=== PATIENT | female | born 1970 | race Caucasian/White ===

== ENCOUNTER → 2022-05-04 | Outpatient (CLI) | payer BC | LOC: M WHC 07:51 | PROVIDERS: ATTEND Internal Medicine | DX: Z12.31 Encounter for screening mammogram for malignant neoplasm of breast (principal) ==

== ENCOUNTER → 2022-09-02 | Outpatient (CLI) | payer BC, OTHER ==
[~2022-09-02] MED LIST: ALLE180T33 PO; AUGM875T28 PO; CETI10CH PO; DECA4TAB PO; ESCI5SOL3 PO; GABA-282 PO; MOBI4TAB PO; PANT40TA29 PO; PRIM50TA6 PO; PROHANCE 279.3MG/ML 15ML VIAL ONE
== END ==
LOC: M PLAIMG 09:11
PROVIDERS: ATTEND Psychiatry & Neurology Neurology
DX: E04.1 Nontoxic single thyroid nodule (principal)
CPT/HCPCS: 70543; A9576

== ENCOUNTER → 2022-10-13 | Outpatient (CLI) | payer OTHER ==
[~2022-10-13] MED LIST changes: -PROHANCE 279.3MG/ML 15ML VIAL ONE
[2022-10-13 13:09] LABS: ALBUMIN 4.3 G/DL (3.2-5.2); ALKALINE PHOSPHATASE 79 U/L (46-116); ALT/SGPT 25 U/L (7.0-40); AST/SGOT 28 U/L (<34); BILIRUBIN,TOTAL 0.3 MG/DL (0.3-1.2); BLOOD UREA NITROGEN 13 MG/DL (9-23); CALCIUM LEVEL 9.3 MG/DL (8.5-10.1); CARBON DIOXIDE LEVEL 27 MMOL/L (20-31); CHLORIDE LEVEL 101 MMOL/L (98-107); CREATININE FOR GFR 0.78 MG/DL (0.55-1.30); GLOMERULAR FILTRATION RATE > 60.0 (>51); GLUCOSE, FASTING 88 MG/DL (60-100); POTASSIUM SERUM 4.7 MMOL/L (3.5-5.1); SODIUM LEVEL 136 MMOL/L (136-145); TOTAL PROTEIN 6.8 G/DL (5.7-8.2)
[2022-10-13 13:58] LABS: HEMOGLOBIN A1c 5.9 % (4.0-6.0)
[2022-10-14 19:06] LABS: FREE KAPPA LIGHT CHAINS SERUM 19.9 mg/L (3.3-19.4); FREE LAMBDA LIGHT CHAINS SERUM 11.5 mg/L (5.7-26.3); KAPPA/LAMBDA RATIO SERUM 1.73 (0.26-1.65)
== END ==
LOC: M RAD 11:09
PROVIDERS: ATTEND Internal Medicine
DX: R73.01 Impaired fasting glucose (principal); D44.0 Neoplasm of uncertain behavior of thyroid gland

== ENCOUNTER → 2023-09-05 | Outpatient (CLI) | payer OTHER | LOC: M SOG 08:28 | PROVIDERS: ATTEND Physician Assistant | DX: M25.512 Pain in left shoulder (principal) ==

== ENCOUNTER → 2023-10-03 | Outpatient (CLI) | payer OTHER ==
[~2023-10-03] MED LIST changes: +ISOVUE-370 76% 100ML VIAL As Ordered ONE
== END ==
LOC: M RAD 17:53
PROVIDERS: ATTEND Internal Medicine
DX: M54.2 Cervicalgia (principal)

== ENCOUNTER → 2024-01-02 | Outpatient (CLI) | payer OTHER ==
[~2024-01-02] MED LIST changes: -ISOVUE-370 76% 100ML VIAL As Ordered ONE
== END ==
LOC: M SOG 07:55
PROVIDERS: ATTEND Physician Assistant
DX: M54.50 Low back pain, unspecified (principal)

== ENCOUNTER → 2024-04-18 | Outpatient (REF) | payer OTHER ==
[~2024-04-18] MED LIST changes: +GABA-1172 PO; -GABA-282 PO
== END ==
LOC: M LAB REF 17:54
PROVIDERS: ATTEND Otolaryngology
DX: R22.0 Localized swelling, mass and lump, head (principal); L72.0 Epidermal cyst

== ENCOUNTER → 2024-08-14 | Outpatient (CLI) | payer OTHER ==
[2024-08-14 14:08] LABS: BASO # 0.1 10^3/uL (0.0-0.2); BASO % 1.1 % (0.0-1.0); EOS # 0.4 10^3/uL (0.0-0.5); EOS % 3.6 % (0.0-3.0); HEMATOCRIT 44.7 % (36.0-47.0); HEMOGLOBIN 14.6 g/dl (12.0-15.5); LYMPH # 3.1 10^3/uL (1.5-5.0); LYMPH % 31.9 % (24.0-44.0); MEAN CORPUSCULAR HEMOGLOBIN 30.8 pg (27.0-33.0); MEAN CORPUSCULAR HGB CONC 32.7 g/dl (32.0-36.5); MEAN CORPUSCULAR VOLUME 94.3 fl (80.0-96.0); MONO # 0.7 10^3/uL (0.0-0.8); MONO % 7.4 % (2.0-8.0); NEUTROPHILS # 5.4 10^3/uL (1.5-8.5); NEUTROPHILS % 55.6 % (36.0-66.0); PLATELET COUNT, AUTOMATED 370 10^3/uL (150-450); RED BLOOD COUNT 4.74 10^6/uL (4.00-5.40); WHITE BLOOD COUNT 9.7 10^3/uL (4.0-10.0)
[2024-08-14 14:16] LABS: ALBUMIN 4.2 G/DL (3.2-5.2); ALKALINE PHOSPHATASE 63 U/L (35-104); ALT/SGPT 19 U/L (7.0-40); AST/SGOT 13 U/L (<34); BILIRUBIN,TOTAL 0.3 MG/DL (0.3-1.2); BLOOD UREA NITROGEN 20 MG/DL (9-23); CALCIUM LEVEL 9.5 MG/DL (8.5-10.1); CARBON DIOXIDE LEVEL 29 MMOL/L (20-31); CHLORIDE LEVEL 106 MMOL/L (98-107); CREATININE FOR GFR 0.81 MG/DL (0.55-1.30); GLOMERULAR FILTRATION RATE > 60.0 (>51); GLUCOSE, FASTING 77 MG/DL (60-100); POTASSIUM SERUM 4.6 MMOL/L (3.5-5.1); SODIUM LEVEL 139 MMOL/L (136-145); TOTAL PROTEIN 7.1 G/DL (5.7-8.2)
[2024-08-14 14:18] LABS: THYROID STIMULATING HORMONE 0.675 uIU/ML (0.55-4.78)
== END ==
LOC: M PLALAB 11:17
PROVIDERS: ATTEND Internal Medicine
DX: G25.0 Essential tremor (principal)

== ENCOUNTER → 2024-08-14 | Outpatient (CLI) | payer OTHER | LOC: M WHC 10:03 | PROVIDERS: ATTEND Internal Medicine | DX: Z12.31 Encounter for screening mammogram for malignant neoplasm of breast (principal); R92.333 Mammographic heterogeneous density, bilateral breasts ==

== ENCOUNTER → 2024-11-26 | Outpatient (REF) | payer OTHER ==
[2024-11-26 17:31] LABS: APPEARANCE, URINE CLEAR (CLEAR); BACTERIA, URINE AUTO NEGATIVE (NEGATIVE); BILIRUBIN, URINE AUTO NEGATIVE (NEGATIVE); BLOOD, URINE BLOOD NEGATIVE (NEGATIVE); GLUCOSE, URINE (UA) AUTO NEGATIVE (NEGATIVE); KETONE, URINE AUTO NEGATIVE (NEGATIVE); LEUKOCYTE ESTERASE, URINE AUTO NEGATIVE (NEGATIVE); NITRITE, URINE AUTO NEGATIVE (NEGATIVE); PROTEIN, URINE AUTO NEGATIVE (NEGATIVE); RBC, URINE AUTO 0 /HPF (0-3); SPECIFIC GRAVITY URINE AUTO 1.003 (1.002-1.035); SQUAMOUS EPITHELIAL CELL UR AU 0 /HPF (0-6); UROBILINOGEN, URINE AUTO 0.2 mg/dL (0.0-2.0); WBC, URINE AUTO 1 /HPF (0-3)
== END ==
LOC: M SMT 16:42
PROVIDERS: ATTEND Urology
DX: R39.9 Unspecified symptoms and signs involving the genitourinary system (principal)

== ENCOUNTER → 2025-01-11 | Outpatient (CLI) | payer OTHER | LOC: M RAD 12:32 | PROVIDERS: ATTEND Urology | DX: R33.9 Retention of urine, unspecified (principal) ==

== ENCOUNTER 2025-02-18 10:44 | Observation (INO) | payer OTHER ==
[~2025-02-18] VITALS: Ht 157.5 cm; Wt 67.7 kg
[~2025-02-18 10:44] MED LIST changes: +ACETAMINOPHEN 1000MG/100ML IV BAG As Ordered ONE; +ALBU8.5H INH; +CYCL-707 PO; +GABA-1490 PO; +KETAMINE HCL 200 MG/20 ML VIAL As Ordered ONE; +KETOROLAC 30 MG/ML 1 ML VIAL As Ordered ONE; +LEXA1TAB2 PO; +LEXA5TAB13 PO; +LIDOCAINE 2% 100 MG/5 ML SDV (FOR ANES.) As Ordered ONE; +MELO15TA28 PO; +MIDAZOLAM INJ 2 MG/2 ML VIAL As Ordered ONE; +ONDANSETRON 4MG 2ML VIAL As Ordered ONE; +ROCURONIUM BROMIDE 50MG/5ML VIAL As Ordered ONE; +SUGAMMADEX SODIUM 500 MG/5 ML VIAL As Ordered ONE; +dexAMETHasone 4 MG/ML 1 ML VIAL As Ordered ONE
[2025-02-18 11:16] LABS: PLATELET COUNT, AUTOMATED 313 10^3/uL (150-450)
[2025-02-18] MEDS: METHYLENE BLUE 0.5% (5 MG/ML) 10 ML AMP As Ordered ONE (13:49)
[2025-02-18] MEDS: ceFAZolin SOD 2 GM IV ONCE IV ONE (14:52)
[2025-02-18] MEDS ORDERED: HYDROmorphone HCL 2 MG/ML 1 ML VIAL As Ordered ONE (19:03)
[2025-02-18] MEDS ORDERED: PERC5TAB12 PO (19:43)
[2025-02-18] MEDS ORDERED: ONDA-282 PO (19:44)
[2025-02-18] MEDS ORDERED: IBUP1TAB7 PO (19:44)
[2025-02-18] MEDS ORDERED: ONDANSETRON 4MG 2ML VIAL IV PRN (19:45)
[2025-02-18] MEDS: HYDROMORPHONE HCL 0.5 MG/0.5 ML SYRINGE IV PRN (19:46)
[2025-02-18] MEDS: ONDANSETRON 4MG 2ML VIAL IV PRN (19:49)
[2025-02-18] MEDS ORDERED: PERCOCET 5MG/325MG TAB PO PRN ×2 (19:50)
[2025-02-18] MEDS ORDERED: MORPHINE 4 MG/ML 1 ML VIAL IV PRN (19:50)
[2025-02-18] MEDS ORDERED: COLA100C5 PO (19:52)
[2025-02-18 21:25] VITALS: BP 117/59; TEMP 98; O2SAT 95
[2025-02-18 21:55] VITALS: BP 111/57; TEMP 98.3; O2SAT 98
[2025-02-18] MEDS ORDERED: PILL CUTTER 1 EACH XX PRN (22:05)
[2025-02-18] MEDS: DOCUSATE SODIUM 100 MG CAPSULE PO SCH (22:09)
[2025-02-18] MEDS: PRIMIDONE 50MG TAB PO SCH (22:09)
[2025-02-18] MEDS: ESCITALOPRAM OXALATE 10 MG TABLET PO SCH (22:09)
[2025-02-18] MEDS: PANTOPRAZOLE 40MG TAB PO SCH (22:09)
[2025-02-18] MEDS: KETOROLAC 30 MG/ML 1 ML VIAL IV SCH (22:11)
[2025-02-18] MEDS: LR 1,000 ML IV SCH (22:13)
[2025-02-18 22:25] VITALS: BP 110/62; TEMP 98.2; O2SAT 95
[2025-02-18 23:25] VITALS: BP 109/58; TEMP 98; O2SAT 95
[2025-02-19 00:25] VITALS: BP 103/55; TEMP 98.4; O2SAT 95
[2025-02-19 01:25] VITALS: BP 93/51; TEMP 99; O2SAT 95
[2025-02-19 02:25] VITALS: BP 100/55; TEMP 98.8; O2SAT 96
[2025-02-19 04:00] VITALS: BP 114/60; TEMP 99.2; O2SAT 96
[2025-02-19 08:50] VITALS: BP 107/59; TEMP 100; O2SAT 95
[2025-02-19 11:52] VITALS: TEMP 99.1
[2025-02-19] MEDS: LR 1,000 ML IV SCH (12:06)
[2025-02-19] MEDS: ACETAMINOPHEN 500 MG TAB PO ONE (12:11)
[2025-02-19] MEDS ORDERED: IBUPROFEN 800 MG TAB PO SCH (17:00)
== END 2025-02-19 16:30 | disposition home or self-care (01) ==
LOC: M SDC 10:44 → M RR INP 10:45 → M PED 21:56
PROVIDERS: ADMIT Obstetrics & Gynecology; ATTEND Obstetrics & Gynecology
DX: N83.201 Unspecified ovarian cyst, right side (principal); E04.1 Nontoxic single thyroid nodule; F17.210 Nicotine dependence, cigarettes, uncomplicated; K21.9 Gastro-esophageal reflux disease without esophagitis; Z79.51 Long term (current) use of inhaled steroids; Z79.899 Other long term (current) drug therapy; F41.9 Anxiety disorder, unspecified; F32.A Depression, unspecified
CPT/HCPCS: 36415; 58661; 85027; 86850; 86900; 86901; 88305; 88307; 96374; 96376; J0131; J0665; J0688; J1100; J1171; J1885; J2250; J2405; J3010; S2900

== ENCOUNTER → 2025-03-05 | Outpatient (REF) | payer OTHER ==
[~2025-03-05] MED LIST changes: -ACETAMINOPHEN 1000MG/100ML IV BAG As Ordered ONE; +COLA100C5 PO; +IBUP1TAB7 PO; -KETAMINE HCL 200 MG/20 ML VIAL As Ordered ONE; -KETOROLAC 30 MG/ML 1 ML VIAL As Ordered ONE; -LIDOCAINE 2% 100 MG/5 ML SDV (FOR ANES.) As Ordered ONE; -MIDAZOLAM INJ 2 MG/2 ML VIAL As Ordered ONE; +ONDA-282 PO; -ONDANSETRON 4MG 2ML VIAL As Ordered ONE; +PERC5TAB12 PO; -ROCURONIUM BROMIDE 50MG/5ML VIAL As Ordered ONE; -SUGAMMADEX SODIUM 500 MG/5 ML VIAL As Ordered ONE; -dexAMETHasone 4 MG/ML 1 ML VIAL As Ordered ONE
[2025-03-05 13:10] LABS: APPEARANCE, URINE CLEAR (CLEAR); BACTERIA, URINE AUTO NEGATIVE (NEGATIVE); BILIRUBIN, URINE AUTO NEGATIVE (NEGATIVE); BLOOD, URINE BLOOD 1+ (NEGATIVE); GLUCOSE, URINE (UA) AUTO NEGATIVE (NEGATIVE); KETONE, URINE AUTO NEGATIVE (NEGATIVE); LEUKOCYTE ESTERASE, URINE AUTO NEGATIVE (NEGATIVE); NITRITE, URINE AUTO NEGATIVE (NEGATIVE); PROTEIN, URINE AUTO NEGATIVE (NEGATIVE); RBC, URINE AUTO 0 /HPF (0-3); SPECIFIC GRAVITY URINE AUTO 1.002 (1.002-1.035); SQUAMOUS EPITHELIAL CELL UR AU 0 /HPF (0-6); UROBILINOGEN, URINE AUTO 0.2 mg/dL (0.0-2.0); WBC, URINE AUTO 0 /HPF (0-3)
== END ==
LOC: M PLALAB 08:45
PROVIDERS: ATTEND Obstetrics & Gynecology
DX: R30.0 Dysuria (principal)

== ENCOUNTER → 2025-03-19 | Outpatient (REF) | payer OTHER | LOC: M LAB REF 16:45 | PROVIDERS: ATTEND Physician Assistant | DX: L03.316 Cellulitis of umbilicus (principal) ==